=== PATIENT | male | born 1965 | race Caucasian/White ===

== ENCOUNTER 2016-06-17 21:15 | Emergency (ER) | payer MEDICAID, OTHER ==
[~2016-06-17] VITALS: Ht 177.8 cm; Wt 82.0 kg
[~2016-06-17 21:15] MED LIST: IBUP400T22 PO
[2016-06-17 21:24] VITALS: Ht 177.8 cm; Wt 82.0 kg
[2016-06-17] MEDS ORDERED: DIPHTH/TET/ACEL PERTUSS (ADULT) 0.5 ML VIAL IM* ONE (23:00)
--- NOTE | 2016-06-17 23:17 | RADRPT ---
PROCEDURE: XR Right Foot CLINICAL INDICATION: Trauma TECHNIQUE: AP, oblique, and lateral radiographs were submitted. COMPARISON: None FINDINGS: Osseous structures: appear well mineralized and intact with no fracture or destructive process iden tified. Joint spaces: are well maintained, with no significant spurring, erosion or joint effusion evident. Soft tissues: appear unremarkable. IMPRESSION: Unremarkable right foot. Physician Antoinette Date Time Electronically viewed and signed by Physician Antoinette on 06/17/2016 23:17 /
[2016-06-17] MEDS ORDERED: CIPR500T4 PO (23:30)
--- NOTE | 2016-06-17 23:43 | ERD ---
ER Documentation Chief Complaint Date/Time DATE: 06/17/16 TIME: 23:41 Chief Complaint punctured wound from a nail since 1 week ago HPI Patient is a 50-year-old male who suffered a puncture wound with a nail through his shoe that occurred 1 week ago. It occurred on his right foot. He is unsure of his last tetanus vaccination. He has mild pain. Denies any numbness or tingling. Patient is ambulatory. No nausea or vomiting. ROS All systems reviewed and are negative except as per history of present illness. Medications Home Meds Active Scripts Ciprofloxacin Hcl* (Ciprofloxacin Hcl*) 500 Mg Tablet, 500 MG PO BID for 7 Days , TAB Prov:RADHA FRIEDMAN PA-C 06/17/16 Ibuprofen* (Motrin*) 400 Mg Tab, 400 MG PO Q6, #30 TAB Prov:MARIA LUISA BYRD NP 01/25/16 Allergies Allergies: Coded Allergies: No Known Allergy (Unverified , 02/21/12) PMhx/Soc Medical and Surgical Hx: pt denies Medical Hx, pt denies Surgical Hx History of Surgery: No Anesthesia Reaction: No Hx Neurological Disorder: No Hx Respiratory Disorders: No Hx Cardiac Disorders: No Hx Psychiatric Problems: No Hx Miscellaneous Medical Probl: No Hx Alcohol Use: No Hx Substance Use: No Hx Tobacco Use: No Smoking Status: Never smoker FmHx Family History: No diabetes Physical Exam Vitals Vital Signs Date Time Temp Pulse Resp B/P Pulse Ox O2 Delivery O2 Flow Rate FiO2 06/17/16 21:24 98.6 95 20 134/77 98 Physical Exam General: well developed, well nourished, alert, nontoxic, no distress Head: normocephalic, atraumatic Neck: Supple, nontender, no lymphadenopathy, no midline tenderness Respiratory: Clear to auscaultation bilaterally, speaks in full sentences, no use of accesory muscles or labored breathing, no rales, ronchi, or wheezing Cardiovascular: RRR, No murmurs Back: no midline tenderness, no step offs or bony abnormalities, sensation to light touch in tact Extremities: moving all extremities normally, normal gait, no edema Skin: Small healing puncture wound on the plantar surface of the right foot, non -gaping, no bleeding, no surrounding erythema or edema Results 24 hrs Current Medications Medications (Trade) Dose Ordered Sig/Efraín Route PRN Reason Start Time Stop Time Status Last Admin Dose Admin Diphtheria/ Tetanus/Acell Pertussis (Adacel) 0.5 ml ONCE ONCE IM* 06/17/16 23:00 06/17/16 23:01 DC 06/17/16 22:44 Procedures/MDM 50-year-old presents with puncture wound. Vital signs are all within normal limits. He was given a tetanus shot and x-rays were ordered and were negative. He was discharged with a prescription for Cipro. Recommended this patient follow up with her primary care doctor within 48 hours or return to the emergency room for any worsening of symptoms. However this time I do believe there is suitable for outpatient management. I answered all their questions and they agreed with the plan and were discharged home. Departure Diagnosis: Primary Impression: Puncture wound Condition: Stable Patient Instructions: Puncture Wound, Foot Additional Instructions: Call your primary care doctor TOMORROW for an appointment during the next 1-2 days.See the doctor sooner or return here if your condition worsens before your appointment time. RADHA FRIEDMAN PA-C Jun 17, 2016 23:43
[2016-06-17 23:58] VITALS: BP 121/74; PULSE 89; RESP 16; TEMP 98
== END 2016-06-18 01:18 | disposition home or self-care (01) ==
LOC: FTE 21:15
DX: S91.331A Puncture wound without foreign body, right foot, initial encounter (principal); W45.0XXA Nail entering through skin, initial encounter; Y92.9 Unspecified place or not applicable; Z23 Encounter for immunization
CPT/HCPCS: 73630; 90471; 90715; Z7502

== ENCOUNTER 2018-05-10 00:32 | Emergency (ER) | END 2018-05-10 01:00 | disposition left against medical advice (07) ==